=== PATIENT | male | born 1990 | race Caucasian/White ===

== ENCOUNTER 2025-04-29 12:38 | Outpatient (CLI) | payer MEDICAID, SELFPAY ==
[2025-04-29 13:41] LABS: Hematocrit 49.0 % (37-53); Hemoglobin 17.50 g/dL (11.27-16.99); Mean Corpuscular HGB Conc 35.7 g/dL (30-55); Mean Corpuscular Hemoglobin 33.1 pg (27-33); Mean Corpuscular Volume 92.6 fl (82-101); Nucleated Red Blood Cells % 0 %; Platelet Count 240 10^3/cmm (157-399); Red Blood Count 5.29 10^6/uL (3.85-5.65); White Blood Count 9.40 10^3/uL (3.29-11.43)
[2025-04-29 14:02] LABS: Alanine Aminotransferase 59 U/L (0-41); Albumin Level 4.5 g/dL (3.5-5.2); Alkaline Phosphatase 78 U/L (40-130); Aspartate Amino Transferase 37 U/L (0-40); Blood Urea Nitrogen 10 mg/dL (6-20); Calcium 9.3 mg/dL (8.5-10.5); Carbon Dioxide 21 mmol/L (22-29); Globulin 2.8 g/dL (1.3-4.6); Glucose 98 mg/dL (65-115); Total Protein 7.3 g/dL (6.6-8.7)
[2025-04-29 14:16] LABS: Anion Gap 16.8 (5-19); Chloride 106 mmol/L (98-107); Osmolality Calculated 289 mOsm/kg (285-295); Potassium 3.8 mmol/L (3.5-5.1); Sodium 140 mmol/L (136-145)
== END 2025-04-29 12:39 | disposition home or self-care (01) ==
PROVIDERS: Family Provider Physician Assistant Medical; PCP Physician Assistant Medical; Visit Provider Nurse Practitioner Family
DX: I10 Essential (primary) hypertension (principal)
CPT/HCPCS: 36415; 80053; 84402; 84403; 85025